=== PATIENT | male | born 1950 | race Caucasian/White ===

== ENCOUNTER 2021-02-28 12:14 | Emergency (ER) | payer MEDICARE, MEDICAID ==
[~2021-02-28] VITALS: Ht 167.6 cm; Wt 73.0 kg
[2021-02-28] MEDS ORDERED: NITROGLYCERIN 0.4MG TABLET SL SL PRN ×2 (12:30→17:00)
[2021-02-28 13:04] LABS: BASOPHILS % 0.9 % (0.0-2.0); EOSINOPHILS % 0.7 % (0.0-5.0); LYMPHOCYTES % 28.6 % (20.0-50.0); MEAN CORPUSCULAR HEMOGLOBIN 30.3 pg (28.0-32.0); MEAN PLATELET VOLUME 7.3 fl (7.4-10.4); MONOCYTES % 8.9 % (2.0-8.0); NEUTROPHILS % 60.9 % (40.0-76.0); PLATELET 223 x1000/uL (130-400); RED CELL DISTRIBUTION WIDTH 13.3 % (11.6-14.6)
[2021-02-28 13:08] LABS: CHLORIDE 107 mEq/L (98-107)
[2021-02-28 13:13] LABS: D-DIMER 0.41 mg/L FEU (<0.50); INR 1.1; PARTIAL THROMBOPLASTIN TIME 29.2 sec (23.4-31.0); PROTHROMBIN TIME 11.6 sec (9.6-11.0)
[2021-02-28] MEDS ORDERED: ZOLPIDEM TARTRATE 5MG TABLET PO PRN (17:00)
[2021-02-28] MEDS ORDERED: KETOROLAC 15MG/ML VIAL IV PRN (17:00)
[2021-02-28] MEDS ORDERED: NA PHOS,M-B/NA PHOS,DI-BA ENEMA 118ML PR PRN (17:00)
[2021-02-28] MEDS ORDERED: IPRATROPIUM/ALBUTEROL 0.5-3(2.5)MG/3ML NEB NEB PRN (17:00)
[2021-02-28] MEDS ORDERED: ACETAMINOPHEN 325MG TABLET PO PRN ×2 (17:00)
[2021-02-28] MEDS ORDERED: MAGNESIUM/ALUMINUM HYDROXIDE/SIMETHICONE 30ML UDC PO PRN (17:00)
[2021-02-28] MEDS ORDERED: ONDANSETRON HCL 4MG/2ML INJ IV PRN (17:00)
[2021-02-28] MEDS ORDERED: DOCUSATE SODIUM 100MG CAPSULE PO PRN (17:00)
[2021-02-28] MEDS ORDERED: TRAMADOL 50MG TABLET PO PRN (17:00)
[2021-02-28] MEDS ORDERED: GUAIFENESIN 200MG/10ML SUGAR FREE UDC PO PRN (17:00)
[2021-02-28] MEDS ORDERED: CLONIDINE 0.1MG TABLET PO PRN (17:00)
[2021-02-28] MEDS ORDERED: ENOXAPARIN 40MG/0.4ML SYR SUBCUT SCH (18:00)
[2021-02-28 18:15] LABS: ETHANOL BLOOD < 10 mg/dL
[2021-02-28 18:20] LABS: LDL CHOLESTEROL 61 mg/dL (5-100)
[2021-02-28 18:23] LABS: TOTAL IRON BINDING CAPACITY 252 ug/dL (250-450)
[2021-02-28 18:25] LABS: HDL CHOLESTEROL 58 mg/dL (40-59)
[2021-02-28 18:31] LABS: FOLIC ACID (FOLATE) SERUM >20 ng/mL ng/mL (>5.38)
[2021-02-28 18:43] LABS: VITAMIN B12 SERUM 803 pg/mL (211-911)
[2021-02-28] MEDS ORDERED: LISINOPRIL 20MG TABLET PO SCH (21:00)
[2021-02-28] MEDS ORDERED: FAMOTIDINE 20MG TABLET PO SCH (21:00)
[2021-02-28] MEDS ORDERED: ASCORBIC ACID 500 MG TABLET PO SCH (21:00)
[2021-02-28 21:06] LABS: *AMPHETAMINES SCREEN URINE NEGATIVE (NEGATIVE)
[2021-02-28 21:07] LABS: *BARBITURATES SCREEN URINE NEGATIVE (NEGATIVE); *BENZODIAZEPINES SCREEN URINE NEGATIVE (NEGATIVE); *COCAINE SCREEN URINE NEGATIVE (NEGATIVE)
[2021-02-28 21:08] LABS: CANNABINOID URINE SCREEN NEGATIVE (NEGATIVE); METHADONE URINE SCREEN NEGATIVE (NEGATIVE); OPIATES URINE SCREEN NEGATIVE (NEGATIVE); PHENCYCLIDINE URINE SCREEN NEGATIVE (NEGATIVE)
[2021-02-28 21:30] VITALS: BP 148/65
[2021-03-01] MEDS ORDERED: CHOLECALCIFEROL (D3) 1000 UNIT TABLET PO SCH (09:00)
[2021-03-01] MEDS ORDERED: ASPIRIN 325MG EC TABLET PO SCH (09:00)
[2021-03-01] MEDS ORDERED: ZINC SULFATE 220 MG ( 50 ) CAPSULE PO SCH (09:00)
[2021-03-01] MEDS ORDERED: ASPIRIN 81MG TABLET PO SCH (09:00)
[2021-03-01] MEDS ORDERED: TRAM50TA3 PO (15:14)
[2021-03-01] MEDS ORDERED: AMLO5TAB88 PO (20:07)
[2021-03-01] MEDS ORDERED: BENA1TAB18 MT (20:07)
== END 2021-02-28 21:52 | disposition left against medical advice (07) ==
LOC: ER 12:47 → EDBEDREQTM 15:04 → EDBEDREQ 15:04 → SUPCPDRO 16:56 → ENRESERV 20:55 → CANRESERV 20:55 → ER 21:52 → CANBEDREQ 22:26
DX: R07.1 Chest pain on breathing (principal); I10 Essential (primary) hypertension; E87.6 Hypokalemia; D64.9 Anemia, unspecified; R07.89 Other chest pain; F10.20 Alcohol dependence, uncomplicated; Y90.9 Presence of alcohol in blood, level not specified
CPT/HCPCS: 36415; 71045; 80053; 80061; 80305; 80320; 82607; 82746; 83036; 83540; 83550; 83880; 84484; 85025; 85379; 85610; 85730; 93005; 96372; 99285; J1650; G0480

== ENCOUNTER → 2023-12-31 | Outpatient (CLI) | payer MEDICARE, MEDICAID ==
[~2023-12-31] MED LIST: ATOR40TA70 PO; CLOP-31 PO; COR3 PO; ISOS30TA91 PO; LOSA25TA26 PO; TRAM50TA3 PO
== END | disposition home or self-care (01) ==
LOC: CARD 10:41
PROVIDERS: ATTEND Internal Medicine
DX: I49.1 Atrial premature depolarization (principal); R07.9 Chest pain, unspecified
CPT/HCPCS: 93306